=== PATIENT | female | born 2000 | race Caucasian/White ===

== ENCOUNTER 2022-01-13 12:29 | Inpatient (IN) | payer OTHER ==
[2022-01-13] MEDS ORDERED: Bicitra 30 ML UDCUP PO PRN (13:06)
[2022-01-13] MEDS ORDERED: hydrALAZINE 20 MG/ML VIAL SLOW IVP PRN ×2 (13:06→20:00)
[2022-01-13] MEDS ORDERED: Famotidine/PF 20 mg/2ml Vial SLOW IVP PRN (13:06)
[2022-01-13] MEDS ORDERED: Ondansetron PF 4 MG/2 ML Vial IVP PRN ×2 (13:06→17:32)
[2022-01-13] MEDS ORDERED: Promethazine HCl 25 MG/ML VIAL IM PRN ×3 (13:06→20:00)
[2022-01-13 13:07] VITALS: BMI 36.9
[2022-01-13] MEDS ORDERED: Clindamycin/D5W 900 MG in Premix Bag 1 BAG IVPB SCH (13:15)
[2022-01-13] MEDS ORDERED: Lactated Ringer's 1,000 ML IV SCH (13:15)
[2022-01-13 13:38] LABS: SARS-CoV-2 NAA Rapid Test Not Detected (NotDetected)
[2022-01-13] MEDS ORDERED: Ondansetron PF 4 MG/2 ML Vial ONE (15:31)
[2022-01-13] MEDS ORDERED: Dexamethasone 4 mg/ml Vial ONE (15:31)
[2022-01-13] MEDS ORDERED: Morphine PF 10 MG/10 ML VIAL ONE (15:31)
[2022-01-13] MEDS ORDERED: Fentanyl 100 MCG/2 ML VIAL ONE ×2 (15:31→18:57)
[2022-01-13] MEDS ORDERED: Phenylephrine 10 MG/ML VIAL ONE (15:31)
[2022-01-13] MEDS ORDERED: Ketorolac Tromethamine 30 MG/ML VIAL ONE (15:32)
[2022-01-13] MEDS ORDERED: Oxytocin 10 UNITS/ML VIAL ONE (15:32)
[2022-01-13] MEDS ORDERED: Famotidine/PF 20 mg/2ml Vial ONE (16:37)
[2022-01-13] MEDS ORDERED: diphenhydrAMINE 50 MG/ML VIAL IVP PRN (17:32)
[2022-01-13] MEDS ORDERED: Naloxone HCl 0.4 mg/ml Vial IV PRN (17:32)
[2022-01-13] MEDS ORDERED: Promethazine HCl 25 MG SUPP PR PRN (17:32)
[2022-01-13] MEDS ORDERED: Fentanyl 100 MCG/2 ML VIAL SLOW IVP PRN (17:32)
[2022-01-13] MEDS ORDERED: Ondansetron HCl/PF 4 MG/2 ML Vial IVP PRN (17:32)
[2022-01-13] MEDS ORDERED: Naloxone HCl 0.4 mg/ml Vial IVP PRN ×2 (17:32)
[2022-01-13] MEDS ORDERED: Hydrocerin (Eucerin) Cream 120 gm Jar TOP PRN (17:32)
[2022-01-13] MEDS ORDERED: Meperidine HCl/PF 25 MG/ML VIAL SLOW IVP PRN (17:32)
[2022-01-13] MEDS ORDERED: Communication Order-Pharmacy FS SCH (17:45)
[2022-01-13] MEDS ORDERED: NS w/ Oxytocin 30 units 500 ML ONE (18:46)
[2022-01-13] MEDS ORDERED: Varicella virus, LIVE 0.5 ML VIAL SC ONE (20:00)
[2022-01-13] MEDS ORDERED: Measles/Mumps/Rubella 10 MCG/0.5 ML VIAL SC ONE (20:00)
[2022-01-13] MEDS ORDERED: Bisacodyl 10 MG SUPP PR PRN (20:00)
[2022-01-13] MEDS ORDERED: Simethicone Chewable 80 MG TAB PO PRN (20:00)
[2022-01-13] MEDS ORDERED: Lanolin Ointment 7 GM TUBE TOP PRN (20:00)
[2022-01-13] MEDS ORDERED: Boostrix 0.5 ML (Tdap) VIAL IM ONE (20:00)
[2022-01-13] MEDS ORDERED: NS w/ Oxytocin 30 units 500 ML IV SCH (20:00)
[2022-01-13] MEDS ORDERED: Methylergonovine 0.2 MG/ML VIAL IM PRN (20:00)
[2022-01-13] MEDS ORDERED: Misoprostol 200 MCG TAB PR PRN (20:00)
[2022-01-13] MEDS ORDERED: Ibuprofen 800 MG TAB PO SCH (22:00)
[2022-01-13] MEDS: Ketorolac Tromethamine 30 MG/ML VIAL IVP SCH (23:06)
[2022-01-14] MEDS: Docusate 100 MG CAP PO SCH ×3 (01:54→21:42)
[2022-01-14 05:07] LABS: Hemoglobin 8.8 g/dL (12.0-15.5); Mean Corpuscular HGB CONC 31.4 g/dL (32.0-36.0); Mean Corpuscular Hemoglobin 22.6 pg (27.0-33.0); Platelet Count 212 10x3/uL (150-450); RBC Distribution Width 14.6 % (11.5-14.5); Red Blood Cell (RBC) Count 3.89 10x6/uL (3.90-5.03); White Blood Cell (WBC) Count 12.5 10x3/uL (3.5-10.5)
[2022-01-14] MEDS ORDERED: Zolpidem Tartrate 5 MG TAB PO PRN (05:45)
[2022-01-14] MEDS ORDERED: HYDROcodone/Acetaminophen 5/325 mg Tablet PO PRN ×2 (05:45)
[2022-01-14] MEDS: Ketorolac Tromethamine 30 MG/ML VIAL IVP SCH ×2 (06:02→14:34)
[2022-01-14] MEDS: Prenatal Vitamin 1 TAB PO SCH (08:33)
[2022-01-14] MEDS ORDERED: Ibuprofen 800 MG TAB PO SCH (14:45)
[2022-01-14] MEDS: Ibuprofen 800 MG TAB PO SCH (21:41)
[2022-01-14] MEDS ORDERED: Calcium Carbonate 500 MG ChewTAB PO PRN (22:29)
[2022-01-15] MEDS: Ibuprofen 800 MG TAB PO SCH (05:43)
[2022-01-15 08:38] VITALS: BP 126/74; TEMP 98.1
[2022-01-15] MEDS: Docusate 100 MG CAP PO SCH (09:22)
[2022-01-15] MEDS: Prenatal Vitamin 1 TAB PO SCH (09:22)
== END 2022-01-15 12:12 | disposition home or self-care (01) | DRG 788 ==
LOC: CSHLD 12:29 → CSHPP 20:20
PROVIDERS: ADMIT Obstetrics & Gynecology; ATTEND Obstetrics & Gynecology
PROC: 10D00Z1 Extraction of Products of Conception, Low, Open Approach (ICD-10-PCS; principal; 2022-01-13)
DX: O34.211 Maternal care for low transverse scar from previous cesarean delivery (principal); Z20.822 Contact with and (suspected) exposure to COVID-19; Z37.0 Single live birth; Z3A.39 39 weeks gestation of pregnancy; Z88.8 Allergy status to other drugs, medicaments and biological substances; Z91.040 Latex allergy status; O75.89 Other specified complications of labor and delivery; Q85.00 Neurofibromatosis, unspecified
CPT/HCPCS: 36415; 85027; 86850; 86900; 86901; J1100; J1885; J1956; J2274; J2370; J2405; J2590; J3010; S0028; U0002